=== PATIENT | male | born 1965 ===

== ENCOUNTER 2017-04-25 19:21 | Emergency (ER) | payer OTHER ==
[2017-04-25 19:27] VITALS: BMI 33.2
[2017-04-25 20:25] LABS: BASO # 0.1 K/uL (0.0-0.2); BASO % 0.7 % (0.0-2.0); EOS # 0.3 K/uL (0.0-0.7); HEMATOCRIT 40.2 % (35.0-51.0); LYMPH % 11.5 % (20.0-40.0); MEAN CELL VOLUME 83.8 fL (80.0-94.0); MEAN CORPUSCULAR HEMOGLOBIN 28.2 pg (27.0-31.0); MEAN CORPUSCULAR HGB CONC 33.7 g/dL (33.0-37.0); MEAN PLATELET VOLUME 8.5 fL (7.2-11.7); MONO # 0.5 K/uL (0.0-0.8); MONO % 6.5 % (0.0-10.0); NRBC % 0.1 % (0.0-2.0); WHITE BLOOD COUNT 8.5 K/uL (4.8-10.8)
[2017-04-25 20:37] LABS: CHLORIDE 102 mmol/L (98-107); SODIUM 135 mmol/L (132-148)
[2017-04-25 20:39] LABS: BILIRUBIN,TOTAL 0.5 mg/dL (0.2-1.3); GFR AFRICAN-AMERICAN > 60
[2017-04-25 20:40] LABS: ALB/GLOB RATIO 1.4 (1.0-2.1); ALKALINE PHOSPHATASE 96 U/L (38-126); ALT/SGPT 45 U/L (21-72); AST/SGOT 29 U/L (17-59); BLOOD UREA NITROGEN 18 mg/dL (9-20); CALCIUM 8.6 mg/dl (8.6-10.4); CARBON DIOXIDE 22 mmol/L (22-30); GLUCOSE,RANDOM 130 mg/dL (75-110); TOTAL PROTEIN 7.4 g/dL (6.3-8.3)
[2017-04-25] MEDS ORDERED: Sodium Chloride 0.9% 1,000 ML IV ONE ×2 (20:47→22:18)
[2017-04-25] MEDS ORDERED: Sodium Chloride 0.9% 1,000 ML ONE (20:51)
[2017-04-25 21:16] LABS: RBC URINE 14 /hpf (0-3); URINE BACTERIA RARE (<OCC); URINE BILIRUBIN NEGATIVE (NEGATIVE); URINE COLOR Straw (YELLOW); URINE GLUCOSE (UA) NORMAL (Normal); URINE KETONE NEGATIVE (NEGATIVE); URINE LEUKOCYTE ESTERASE NEG Leu/uL (Negative); URINE PROTEIN NEGATIVE (NEGATIVE); URINE UROBILINOGEN NORMAL mg/dL (0.2-1.0); WBC URINE 3 /hpf (0-5)
[2017-04-25 21:17] LABS: URINE BLOOD 2+ (NEGATIVE)
[2017-04-25] MEDS ORDERED: HYDROmorphone 1 mg/ml ISec IVP STA ×2 (22:19→23:40)
[2017-04-25] MEDS ORDERED: HYDROmorphone 0.5 mg/0.5 ml ISec ONE ×2 (22:24→23:46)
--- NOTE | 2017-04-25 22:38 | CT ---
EXAM: CT Abdomen and Pelvis Without Intravenous Contrast EXAM DATE/TIME: 04/25/2017 8:47 PM CLINICAL HISTORY: 51 years old, male; Pain; Abdominal pain; Flank; Right lower quadrant (rlq); Additional info: Abd pain TECHNIQUE: Axial computed tomography images of the abdomen and pelvis without intravenous contrast. All CT scans at this facility use one or more dose reduction techniques, viz.: automated exposure control; ma/kV adjustment per patient size (including targeted exams where dose is matched to indication; i.e. head); or iterative reconstruction technique. Coronal and sagittal reformatted images were created and reviewed. COMPARISON: There are no prior studies for comparison. FINDINGS: Lower thorax: The heart is mildly enlarged. There are coronary artery calcifications. There is a small hiatal hernia. There is atelectasis at the lung bases. There is minimal scarring at the lung bases. ABDOMEN: Liver: unremarkable Gallbladder and bile ducts: unremarkable Pancreas: unremarkable Spleen: There are punctate calcifications in the spleen. Adrenals: unremarkable Kidneys and ureters: There is a left renal cyst. Left kidney and ureter are otherwise unremarkable. There is obstructive uropathy on the right. There is a 3.5 mm distal right ureteral stone proximal to the ureterovesical junction. Stomach and bowel: Stomach is partially distended with an air-fluid level. Rotation is normal. Small bowel is mildly distended with fluid and enteric contents. There is no obstruction. Ileocecal region is unremarkable. Appendix and terminal ileum are unremarkable. Colon is incompletely distended which limits evaluation. Appendix: See stomach and bowel PELVIS: Bladder: Bladder is almost empty. There is mild bladder wall thickening. Reproductive: Prostate is enlarged. There is prominence of seminal vesicles. ABDOMEN and PELVIS: Intraperitoneal space: There is no free air or free fluid. Bones/joints: There are degenerative changes in the osseus structures. There is partial ankylosis of the left sacroiliac joint. Soft tissues: There is a small fat containing umbilical hernia. Vasculature: Vascular structures are unremarkable. Lymph nodes: There is no pathologic adenopathy. IMPRESSION: 3.5 mm obstructing distal right ureteral stone Additional findings as described above.
--- NOTE | 2017-04-25 23:25 | C.PDOC ---
History Of Present Illness 51 year old male presents to the ED with right flank pain that radiates to his lower back that started today at approximately 17:00. Patient states his pain is associated with nausea, vomit, and is unable to urinate. Patient denies ETOH ingestion, fever, chills, dysuria, hematuria or known sick contacts. Time Seen by Provider: 04/25/17 20:41 Chief Complaint (Nursing): Abdominal Pain History Per: Patient History/Exam Limitations: no limitations Onset/Duration Of Symptoms: Hrs Current Symptoms Are (Timing): Still Present Location Of Pain/Discomfort: RLQ Radiation Of Pain To:: Back Quality Of Discomfort: "Pain" Associated Symptoms: Nausea, Vomiting, Urinary Symptoms Exacerbating Factors: None Recent travel outside of the [place]: No Additional History Per: Patient Past Medical History Reviewed: Historical Data, Nursing Documentation, Vital Signs Vital Signs: Last Vital Signs Temp 97.2 F L 04/25/17 23:52 Pulse 80 04/25/17 23:52 Resp 12 04/25/17 23:52 BP 120/70 04/25/17 23:52 Pulse Ox 98 04/26/17 01:20 - Medical History PMH: HTN Surgical History: No Surg Hx - [facility] Procedures ESOPHAGOGASTRODUODENOSCOPY [EGD] W/CLOSED BIOPSY (06/07/13) OTHER ENDOSCOPY OF SM INTEST (01/04/13) PACKED CELL TRANSFUSION (06/07/13) Family History: States: Unknown Family Hx - Social History Hx Alcohol Use: Yes Hx Substance Use: No Review Of Systems Constitutional: Negative for: Fever, Chills Cardiovascular: Negative for: Chest Pain Gastrointestinal: Positive for: Nausea, Vomiting, Abdominal Pain Genitourinary: Negative for: Dysuria, Frequency, Hematuria Physical Exam - Physical Exam Appears: Non-toxic, In Acute Distress Skin: Normal Color, Warm, Dry Head: Atraumatic, Normacephalic Oral Mucosa: Moist Neck: Normal, Supple Chest: Symmetrical Cardiovascular: Rhythm Regular Respiratory: Normal Breath Sounds, No Accessory Muscle Use, No Rales, No Rhonchi , No Wheezing Back: CVA Tenderness (Right lumbar) Extremity: Normal ROM, No Pedal Edema, No Calf Tenderness, Capillary Refill ( less than 2 seconds) Neurological/Psych: Oriented x3, Normal Speech, Normal Cognition ED Course And Treatment - Laboratory Results Result Diagrams: 04/25/17 20:17 10/20/17 20:17 O2 Sat by Pulse Oximetry: 98 (On RA) Pulse Ox Interpretation: Normal - CT Scan/US CT Abdo/Pelvis Other Rad Studies (CT/US): Interpreted By Me, Read By Radiologist CT/US Interpretation: FINDINGS: Lower thorax: The heart is mildly enlarged. There are coronary artery. calcifications. There is a small hiatal hernia. There is atelectasis at the. lung bases. There is minimal scarring at the lung bases. . ABDOMEN: Liver: unremarkable. Gallbladder and bile ducts: unremarkable. Pancreas: unremarkable. Spleen: There are punctate calcifications in the spleen. Adrenals: unremarkable. Kidneys and ureters: There is a left renal cyst. Left kidney and ureter are. otherwise unremarkable. . There is obstructive uropathy on the right. There is a 3.5 mm distal right. ureteral stone proximal to the ureterovesical junction. . Stomach and bowel: Stomach is partially distended with an air-fluid level. Rotation is normal. Small bowel is mildly distended with fluid and enteric. contents. There is no obstruction. Ileocecal region is unremarkable. Appendix. and terminal ileum are unremarkable. Colon is incompletely distended which. limits evaluation. Appendix: See stomach and bowel. . PELVIS: Bladder: Bladder is almost empty. There is mild bladder wall thickening. Reproductive: Prostate is enlarged. There is prominence of seminal vesicles. . ABDOMEN and PELVIS: Intraperitoneal space: There is no free air or free fluid. Bones/ joints: There are degenerative changes in the osseus structures. There is partial ankylosis of the left sacroiliac joint. Soft tissues: There is a small fat containing umbilical hernia. Vasculature: Vascular structures are unremarkable. Lymph nodes: There is no pathologic adenopathy. . IMPRESSION: 3.5 mm obstructing distal right ureteral stone Medical Decision Making Medical Decision Making: Impression : 51 y/o male with right sided flank pain. Plan : * CT abdo/pelvis w/o contrast PO ordered * Blood work ordered * IV fluids, Zofran 4 mg IVP, Toradol 30 mg IVP, Dilaudid 1 mg IVP, Compazine 10 mg IM administered * UA ordered Patient was still exhibiting some pain even after the medication was given more nausea and pain medication, given instructions of how to take care of the renal stone and was discharged home. Disposition - Disposition Referrals: Milo Jaquez MD [Staff Provider] - Abdirashid Low MD [Medical Doctor] - Disposition: HOME/ ROUTINE Disposition Time: 07:40 Condition: FAIR Prescriptions: Acetaminophen/Hydrocodone Bi [Vicodin 300 mg-5 mg] 1 tab PO QID PRN #14 tab PRN Reason: Pain, Mild (1-3) Ondansetron ODT [Zofran ODT] 4 mg PO Q6 PRN #10 odt PRN Reason: Nausea/Vomiting Tamsulosin HCl [Flomax] 0.4 mg PO DAILY #5 cap.er.24h Instructions: Renal Colic (GEN) Forms: Gen Discharge Inst [place], [facility] (Y[place]) - Clinical Impression Clinical Impression: Renal colic on right side - Scribe Statement The provider has reviewed the documentation as recorded by the Scribe Tai Forbes All medical record entries made by the Scribe were at my direction and personally dictated by me. I have reviewed the chart and agree that the record accurately reflects my personal performance of the history, physical exam, medical decision making, and the department course for this patient. I have also personally directed, reviewed, and agree with the discharge instructions and disposition.
[2017-04-25 23:55] VITALS: BP 120/70; PULSE 80; RESP 12; TEMP 97.2
[2017-04-26 00:17] VITALS: O2SAT 98
== END 2017-04-25 23:54 | disposition home or self-care (01) ==
LOC: C.ER 19:21
DX: N20.0 Calculus of kidney (principal)
CPT/HCPCS: 74176; 80053; 81001; 83690; 85025; 96361; 96372; 96374; 96375; 96376; 99285; J0780; J1170; J1885; J2405; J7040

== ENCOUNTER 2017-06-24 05:45 | Day surgery (SDC) | payer OTHER ==
[2017-06-18 10:44] VITALS: BMI 31.3
[2017-06-24 06:43] VITALS: TEMP 98
[2017-06-24] MEDS ORDERED: Propofol 10 mg/ml Inj (20 ML) ONE (07:23)
[2017-06-24] MEDS ORDERED: Midazolam 2 MG/2 ML VIAL ONE (07:23)
[2017-06-24] MEDS ORDERED: Lactated Ringer's 1,000 ML IV ONE ×3 (07:45→14:15)
[2017-06-24] MEDS ORDERED: ceFAZolin IV 2 gm in Dextrose 2 GM/50 ML BAG IVPB ONE (07:55)
[2017-06-24] MEDS: Bupivacaine HCl 0.5% PF (10 ml) Inj ONE ×3 (08:39→12:40)
[2017-06-24] MEDS ORDERED: Bacitracin Ointment 30 GM TUBE ONE (08:56)
[2017-06-24] MEDS ORDERED: ePHEDrine 50 mg/ml Inj ONE ×2 (09:14→10:32)
[2017-06-24] MEDS ORDERED: Neostigmine Methylsulfate 3mg/3ml Syringe IV ONE (10:30)
[2017-06-24] MEDS ORDERED: Phenylephrine 10 mg/ml Inj ONE (10:32)
[2017-06-24] MEDS ORDERED: Oxycodone/Acetaminophen 5/325 mg Tab PO ONE (12:59)
--- NOTE | 2017-06-24 13:06 | PCM.SURG1 ---
Surgeon's Initial Post Op Note - Surgeon's Notes Surgeon: Dr. Ball Diamond Driller: Dr. Isaac PGY1, Deo OMS3 Type of Anesthesia: General Endo Pre-Operative Diagnosis: Ulnar nerve injury Operative Findings: severed ulnar nerve in forearm; for full details see op note Post-Operative Diagnosis: as above Operation Performed: Exploration of right ulnar nerve in forearm, guyons canal, carpal and cubital tunnel release;. Right ulnar nerve reconstruction and graft. Ulnar nerve transposition. Right forearm scar revision Specimen/Specimens Removed: right forearm scar. right ulnar nerve Estimated Blood Loss: EBL {In ML}: 300 Blood Products Given: N/A Drains Used: Paige Post-Op Condition: Good Date of Surgery/Procedure: 06/24/17 Time of Surgery/Procedure: 08:00
[2017-06-24 13:31] VITALS: O2SAT 100
[2017-06-24] MEDS: HYDROmorphone 0.5 mg/0.5 ml ISec IVP PRN ×2 (13:36→13:57)
[2017-06-24 14:46] VITALS: BP 127/85; PULSE 76; RESP 18
--- NOTE | 2017-08-03 10:32 | OP ---
PROCEDURE DATE: 06/24/2017 SURGEON: Ashleigh Ball MD INSPECTOR BALANCE BRIDGE: Dr. Isaac, PGY-1 PREOPERATIVE DIAGNOSES: Ulnar nerve palsy, cubital tunnel, Guyon tunnel compression, and carpal tunnel. POSTOPERATIVE DIAGNOSES: Ulnar nerve transection in the middle forearm, ulnar artery transection in the middle forearm, ulnar nerve compression at the cubital tunnel, ulnar nerve compression at the Guyon's canal, and median nerve compression at the wrist. PROCEDURE: Open carpal tunnel release, right; right release of the Guyon's canal; right cubital tunnel release at the medial elbow; right ulnar nerve reconstruction with 4-cm nerve allograft; ulnar nerve transposition, and right forearm scar revision 6cm long. SPECIMEN: Right forearm scar and right ulnar nerve were sent to pathology. ESTIMATED BLOOD LOSS: 300 mL. COUNTS: Laps, sponge, and needle counts were correct at the end of the case. CONDITION: The patient was stable upon discharge to recovery. INDICATIONS FOR SURGERY: Patient is a 52-year-old male, who sustained a laceration to his right forearm while at work over the summer. He initially came in complaining of some weakness to his intrinsic muscles, but still had evidence of intrinsic muscle function. Preoperative EMGs were done which were consistent with an ulnar nerve transection; however, clinically he had evidence of ulnar nerve function in the hand. Decision was made to decompress the ulnar and median nerves to prevent a double crush injury and exploration of the laceration with most likely a release of scar tissue around the nerve. There was low suspicion that the nerve was completely transected as there was no electrical evidence of any Mo-Jenni or Yomi-Cannieu anastomosis, and there was evidence of ulnar nerve function present in the hand, although weakened. DESCRIPTION OF PROCEDURE: Surgery is as follows: The patient was identified in the holding area. The right arm was marked. He was then brought into the operating room and laid supine on the operating room table. Once general anesthesia was induced with nondepolarizing agents, patient's right arm was placed in the tourniquet, and prepped and draped in the usual sterile fashion. Beginning with the carpal tunnel, incision was made in the ulnar half of the midline palm in line with the fourth metacarpal ray for approximate 2.5 cm in length. The incision was taken down through skin and dermis. The carpal ligament was easily divided with a new 15 scalpel. Once the incision was made, there was significant thickened synovitis noted in the palm. The carpal tunnel was divided to the level of the palmar arch and proximally was extended into the wrist dividing the antebrachial cutaneous fascia to the mid forearm. Guyon's canal was identified on the ulnar half of the palm. The fibrous attachments along the radial surface were divided in order to expose the ulnar nerve and ulnar artery. Tracing the ulnar nerve distally, the motor branch was identified passing under the hypothenar eminence and the leading edge of the hypothenar eminence fascia was divided. Using an incision at the medial elbow, shelter between the olecranon and the medial epicondyle, the incision was taken down through the skin and dermis until the retinaculum was identified over the medial elbow. This was incised with a new, fresh #15 scalpel and the ulnar nerve was released. Under direct visualization, the ulnar nerve was released from the surrounding tissue. Distally, the nerve was released to the level of the flexor carpi ulnaris heads. The branches to the muscle were preserved while the epineurium was divided. Proximally, the enveloping fascia was divided to the intermuscular septum. At this point, our attention was turned to the mid forearm laceration. Incision was taken down through the skin and dermis. The elliptical excision of the 6cm long scar was removed. The FCU tendon was identified and divided longitudinally in order to explore the wound. Upon exploration, the ulnar nerve was completely transected and being healed together with some connective tissue. The ulnar artery was also completely transected. One venae comitant was noted to be intact with surrounding connective tissue keeping the two ends in relative proximitry. Once the scarred tissue was removed and healthy nerve fascicles identified, the resulting gap was 4 cm. Using cadaveric AxoGen nerve graft, a 4-5mm x 50 mm nerve graft was trimmed to 4 cm in length in order to accommodate the gap. The nerve allograft was sutured in place using 8-0 nylon in an interrupted fashion. A nerve wrap was then used on either neurorrhaphy sites to reinforce the repair. The three wounds were then irrigated. Tourniquet was deflated at this point, manual pressure held, any bleeding was controlled with electrocautery. The wounds were then closed with 3-0 Monocryl to the deep dermis and 4-0 Monocryl running subcuticular for the two forearm incisions. The palmar incision was closed using 4-0 chromic in an interrupted horizontal mattress fashion. All three wounds were then covered with Adaptic, bacitracin, 4 x 4 gauze, Webril, and secured in place with an Pradeep wrap. The patient tolerated the procedure well, was extubated on the table, transferred to a stretcher, and brought to recovery in stable condition. Ashleigh Ball MD NGOZI
== END 2017-06-24 17:48 | disposition home or self-care (01) ==
LOC: C.SDS 05:45
PROVIDERS: ATTEND Plastic Surgery Surgery of the Hand
DX: G56.01 Carpal tunnel syndrome, right upper limb (principal); G56.21 Lesion of ulnar nerve, right upper limb
CPT/HCPCS: 64721; 88304; J0690; J1100; J1170; J2001; J2250; J2370; J2405; J2704; J2710; J3010; J7120